=== PATIENT | female | born 1985 | race Caucasian/White ===

== ENCOUNTER 2016-09-11 22:41 | Emergency (ER) | payer OTHER ==
[~2016-09-11] VITALS: Ht 165.1 cm; Wt 156.5 kg
[~2016-09-11 22:41] MED LIST: NAPROSYN375 MG PO; NO HOME MEDS
[2016-09-11 23:24] LABS: HEMATOCRIT 37.8 % (36.0-46.0); MCH 26.5 PG (29.0-34.0); MCHC 32.5 G/DL (30.0-36.0); MCV 81.5 FL (83-99); MEAN PLAT.VOLUME 10.1 uM^3 (9.5-12.4); PLATELET COUNT 266 K/uL (156-360); RBC DIS.WIDTH-CV 13.6 % (11.8-14.6); RBC DIS.WIDTH-SD 39.4 % (39-53); RED BLOOD COUNT 4.64 M/uL (3.80-5.20); WHITE BLOOD COUNT 7.9 K/uL (4.1-10.2)
[2016-09-11 23:27] LABS: CHLORIDE 109 mEq/L (99-109); POTASSIUM 3.9 mEq/L (3.7-5.4); SODIUM 141 mEq/L (136-147)
[2016-09-11 23:29] LABS: D-DIMER ELISA 0.28 mg/L FEU (< 0.57); GLUCOSE 100 mg/dL (70-99)
[2016-09-11 23:30] LABS: ANION GAP 9 MEQ/L (2-14)
[2016-09-11 23:31] LABS: TOTAL BILIRUBIN 0.4 mg/dL (0.0-1.0)
[2016-09-11 23:33] LABS: ALKALINE PHOSPHATASE 81 IU/L (3-129); GFR ESTIMATE (CALCULATED) > 59 mL/min/
[2016-09-11 23:34] LABS: UREA NITROGEN (BUN) 22 mg/dL (9-23)
[2016-09-11 23:35] LABS: DIRECT BILIRUBIN 0.2 mg/dL (0.0-0.3)
[2016-09-11 23:36] LABS: LIPASE 31 U/L (1.0-51.0)
[2016-09-11 23:43] LABS: TROP-I INTERPRETATION NEGATIVE; TROPONIN-I < 0.01 ng/mL (0.0-0.30)
[2016-09-12 00:51] VITALS: BP 121/82
== END 2016-09-12 00:52 | disposition home or self-care (01) ==
LOC: EME 22:41
DX: R07.2 Precordial pain (principal); R07.81 Pleurodynia
CPT/HCPCS: 71020; 80048; 80076; 83690; 84484; 85027; 85379; 93005

== ENCOUNTER 2017-04-07 22:33 | Emergency (ER) | payer OTHER ==
[~2017-04-07] VITALS: Ht 162.6 cm; Wt 172.4 kg
[2017-04-08 00:52] VITALS: BP 128/85
== END 2017-04-08 00:55 | disposition home or self-care (01) ==
LOC: EME 22:33
DX: T50.995A Adverse effect of other drugs, medicaments and biological substances, initial encounter (principal); R22.1 Localized swelling, mass and lump, neck; M25.471 Effusion, right ankle; M25.472 Effusion, left ankle
CPT/HCPCS: 99281; 99284; J8540

== ENCOUNTER 2017-08-14 14:29 | Emergency (ER) | payer OTHER ==
[~2017-08-14] VITALS: Ht 162.6 cm; Wt 172.9 kg
[2017-08-14 16:42] LABS: HEMATOCRIT 38.9 % (36.0-46.0); HEMOGLOBIN 12.6 G/DL (11.9-15.5); MCH 26.1 PG (29.0-34.0); MCHC 32.4 G/DL (30.0-36.0); MCV 80.5 FL (83-99); PLATELET COUNT 234 K/uL (156-360); RBC DIS.WIDTH-CV 12.7 % (11.8-14.6); RBC DIS.WIDTH-SD 37.3 % (39-53); RED BLOOD COUNT 4.83 M/uL (3.80-5.20); WHITE BLOOD COUNT 6.4 K/uL (4.1-10.2)
[2017-08-14 16:48] LABS: CHLORIDE 106 mEq/L (99-109); POTASSIUM 3.8 mEq/L (3.7-5.4); SODIUM 137 mEq/L (136-147)
[2017-08-14 16:50] LABS: GLUCOSE 107 mg/dL (70-99)
[2017-08-14 16:54] LABS: CREATININE 0.8 mg/dL (0.6-1.3); GFR ESTIMATE (CALCULATED) > 59 mL/min/
[2017-08-14 16:55] LABS: UREA NITROGEN (BUN) 14 mg/dL (9-23)
[2017-08-14 17:01] LABS: TROP-I INTERPRETATION NEGATIVE; TROPONIN-I < 0.01 ng/mL (0.0-0.30)
[2017-08-14 22:07] VITALS: BP 115/88
== END 2017-08-14 22:07 | disposition home or self-care (01) ==
LOC: EME 14:29 → RME 14:29
DX: R07.89 Other chest pain (principal); M79.89 Other specified soft tissue disorders; Z88.5 Allergy status to narcotic agent; F41.9 Anxiety disorder, unspecified
CPT/HCPCS: 71046; 80048; 84484; 85027; 93005; 93970; 99281; 99284; Q0177

== ENCOUNTER 2017-08-17 18:31 | Emergency (ER) | payer OTHER ==
[~2017-08-17] VITALS: Ht 162.6 cm; Wt 171.5 kg
[2017-08-17 19:52] LABS: HEMATOCRIT 37.8 % (36.0-46.0); HEMOGLOBIN 12.5 G/DL (11.9-15.5); MCH 26.7 PG (29.0-34.0); MCHC 33.1 G/DL (30.0-36.0); MCV 80.8 FL (83-99); PLATELET COUNT 233 K/uL (156-360); RBC DIS.WIDTH-CV 12.7 % (11.8-14.6); RBC DIS.WIDTH-SD 36.5 % (39-53); RED BLOOD COUNT 4.68 M/uL (3.80-5.20); WHITE BLOOD COUNT 8.7 K/uL (4.1-10.2)
[2017-08-17 19:59] LABS: D-DIMER ELISA < 150.00 ng/mLDDU (<230)
[2017-08-17 20:02] LABS: CHLORIDE 104 mEq/L (99-109); POTASSIUM 3.4 mEq/L (3.7-5.4); SODIUM 137 mEq/L (136-147)
[2017-08-17 20:04] LABS: GLUCOSE 104 mg/dL (70-99); TOTAL PROTEIN 7.3 g/dL (6.4-8.3)
[2017-08-17 20:06] LABS: TOTAL BILIRUBIN 0.7 mg/dL (0.0-1.0)
[2017-08-17 20:08] LABS: ALKALINE PHOSPHATASE 81 IU/L (3-129); CREATININE 0.8 mg/dL (0.6-1.3); GFR ESTIMATE (CALCULATED) > 59 mL/min/
[2017-08-17 20:09] LABS: UREA NITROGEN (BUN) 12 mg/dL (9-23)
[2017-08-17 20:10] LABS: AST (GOT) 15 IU/L (2-34)
[2017-08-17 20:11] LABS: ALT (GPT) 25 IU/L (3-49); LIPASE 9 U/L (1.0-51.0)
[2017-08-17 20:17] LABS: TROP-I INTERPRETATION NEGATIVE; TROPONIN-I < 0.01 ng/mL (0.0-0.30)
[2017-08-17 20:18] LABS: APPEARANCE SL.HAZY ((CLEAR)); BILIRUBIN NEGATIVE; BLOOD NEGATIVE; COLOR YELLOW ((YELLOW)); GLUCOSE (STRIP) NEGATIVE; KETONES 5; LEUKOCYTES NEGATIVE; NITRITE NEGATIVE; PROTEIN (STRIP) NEGATIVE; SPECIFIC GRAVITY 1.023 (1.000-1.030); UROBILINOGEN 0.2 MG/DL (0.2-1.0)
[2017-08-17 20:18] LABS: QUANTITATIVE HCG < 4.0 MIU/ML
[2017-08-17 20:23] LABS: BACTERIA NONE SEEN /HPF; EPITHELIAL CELLS 1+ /HPF; MUCUS TRACE /LPF; RED BLOOD CELLS 0-5 /HPF (0-5); WHITE BLOOD CELLS 0-5 /HPF (0-5)
[2017-08-17] MEDS ORDERED: ATIVAN0.5 MG PO (20:55)
[2017-08-17 21:37] VITALS: BP 144/72
== END 2017-08-17 21:38 | disposition home or self-care (01) ==
LOC: EME 18:31
PROVIDERS: Nurse Practitioner Family
DX: R07.89 Other chest pain (principal); F41.9 Anxiety disorder, unspecified; E66.01 Morbid (severe) obesity due to excess calories; Z68.44 Body mass index [BMI] 60.0-69.9, adult; R00.2 Palpitations; M79.601 Pain in right arm; M79.602 Pain in left arm; R10.11 Right upper quadrant pain; I44.0 Atrioventricular block, first degree; R03.0 Elevated blood-pressure reading, without diagnosis of hypertension; Z82.49 Family history of ischemic heart disease and other diseases of the circulatory system
CPT/HCPCS: 80053; 81003; 83690; 84484; 84702; 85027; 85379; 93005; 99281; 99284

== ENCOUNTER 2017-11-10 20:58 | Emergency (ER) | payer OTHER ==
[~2017-11-10] VITALS: Ht 162.6 cm; Wt 176.6 kg
[~2017-11-10 20:58] MED LIST changes: +ATIVAN0.5 MG PO
[2017-11-10 22:17] LABS: HEMATOCRIT 38.2 % (36.0-46.0); HEMOGLOBIN 12.6 G/DL (11.9-15.5); MCH 26.9 PG (29.0-34.0); MCV 81.6 FL (83-99); PLATELET COUNT 236 K/uL (156-360); RBC DIS.WIDTH-CV 13.1 % (11.8-14.6); RBC DIS.WIDTH-SD 38.5 % (39-53); RED BLOOD COUNT 4.68 M/uL (3.80-5.20); WHITE BLOOD COUNT 8.4 K/uL (4.1-10.2)
[2017-11-10 22:33] LABS: CHLORIDE 107 mEq/L (99-109); SODIUM 141 mEq/L (136-147)
[2017-11-10 22:35] LABS: GLUCOSE 131 mg/dL (70-99)
[2017-11-10 22:38] LABS: CREATININE 0.8 mg/dL (0.6-1.3); GFR ESTIMATE (CALCULATED) > 59 mL/min/
[2017-11-10 22:39] LABS: UREA NITROGEN (BUN) 18 mg/dL (9-23)
[2017-11-10 22:41] LABS: TROP-I INTERPRETATION NEGATIVE; TROPONIN-I < 0.01 ng/mL (0.0-0.30)
[2017-11-11 01:00] LABS: D-DIMER ELISA < 150.00 ng/mLDDU (<230)
[2017-11-11 01:07] LABS: ALBUMIN 4.1 g/dL (3.2-4.8)
[2017-11-11 01:10] LABS: TOTAL PROTEIN 7.2 g/dL (6.4-8.3)
[2017-11-11 01:12] LABS: TOTAL BILIRUBIN 0.4 mg/dL (0.0-1.0)
[2017-11-11 01:13] LABS: ALKALINE PHOSPHATASE 85 IU/L (3-129)
[2017-11-11 01:15] LABS: AST (GOT) 15 IU/L (2-34); DIRECT BILIRUBIN 0.2 mg/dL (0.0-0.3)
[2017-11-11 01:16] LABS: ALT (GPT) 25 IU/L (3-49)
[2017-11-11 01:17] LABS: LIPASE 24 U/L (1.0-51.0)
[2017-11-11 01:24] LABS: TROP-I INTERPRETATION NEGATIVE; TROPONIN-I < 0.01 ng/mL (0.0-0.30)
[2017-11-11] MEDS ORDERED: SKELAXIN800 MG PO (01:37)
[2017-11-11] MEDS ORDERED: MOTRIN800 MG PO (01:37)
[2017-11-11 01:51] VITALS: BP 131/81
== END 2017-11-11 01:55 | disposition home or self-care (01) ==
LOC: EME 20:58
PROVIDERS: Nurse Practitioner Family
DX: R07.9 Chest pain, unspecified (principal); F41.9 Anxiety disorder, unspecified; Z88.5 Allergy status to narcotic agent
CPT/HCPCS: 71046; 80048; 80076; 83690; 84484; 85027; 85379; 93005; 99281; 99283; J1885

== ENCOUNTER 2017-11-23 23:17 | Emergency (ER) | payer OTHER ==
[~2017-11-23] VITALS: Ht 162.6 cm; Wt 175.4 kg
[~2017-11-23 23:17] MED LIST changes: +MOTRIN800 MG PO; +SKELAXIN800 MG PO
[2017-11-23 23:41] LABS: HEMATOCRIT 37.3 % (36.0-46.0); HEMOGLOBIN 12.3 G/DL (11.9-15.5); MCH 26.7 PG (29.0-34.0); MCV 81.1 FL (83-99); PLATELET COUNT 222 K/uL (156-360); RBC DIS.WIDTH-CV 13.2 % (11.8-14.6); RBC DIS.WIDTH-SD 38.3 % (39-53); WHITE BLOOD COUNT 8.1 K/uL (4.1-10.2)
[2017-11-24 00:03] LABS: QUANTITATIVE HCG < 4.0 MIU/ML
[2017-11-24 00:23] LABS: ALBUMIN 4.1 G/DL (3.2-4.8); ALKALINE PHOSPHATASE 70 IU/L (3-129); ALT (GPT) 19 IU/L (3-49); AST (GOT) 13 IU/L (2-34); CHLORIDE 105 MEQ/L (99-109); CREATININE 0.7 MG/DL (0.6-1.3); GFR ESTIMATE (CALCULATED) > 59 mL/min/; GLUCOSE 115 mg/dL (70-99); POTASSIUM 4.1 MEQ/L (3.7-5.4); SODIUM 140 MEQ/L (136-147); TOTAL BILIRUBIN 0.4 MG/DL (0.0-1.0); TOTAL PROTEIN 6.9 G/DL (6.4-8.3); UREA NITROGEN (BUN) 19 mg/dL (9-23)
[2017-11-24] MEDS ORDERED: ZANTAC150 MG PO (01:49)
[2017-11-24 02:11] LABS: APPEARANCE CLEAR ((CLEAR)); BILIRUBIN NEGATIVE; BLOOD NEGATIVE; COLOR YELLOW ((YELLOW)); GLUCOSE (STRIP) NEGATIVE; KETONES NEGATIVE; LEUKOCYTES NEGATIVE; NITRITE NEGATIVE; PROTEIN (STRIP) NEGATIVE; SPECIFIC GRAVITY 1.028 (1.000-1.030); UCUL ADDED? NO; UROBILINOGEN 0.2 MG/DL (0.2-1.0)
[2017-11-24 02:29] VITALS: BP 112/80
[2017-11-24 04:22] LABS: LIPASE 20 U/L (1.0-51.0)
== END 2017-11-24 02:30 | disposition home or self-care (01) ==
LOC: EME 23:17
DX: K21.9 Gastro-esophageal reflux disease without esophagitis (principal); R93.2 Abnormal findings on diagnostic imaging of liver and biliary tract; Z87.19 Personal history of other diseases of the digestive system; Z88.5 Allergy status to narcotic agent
CPT/HCPCS: 76705; 80053; 81003; 83690; 83735; 84702; 85027; 99281; 99285